=== PATIENT | female | born 1980 | race Caucasian/White ===

== ENCOUNTER → 2023-09-02 | Outpatient (CLI) | payer BC, SELFPAY ==
--- NOTE | 2023-09-02 12:11 | US_ITS ---
ACR Level 3 findings have been noted. An addendum which confirms receipt of the report will follow. INDICATION: LOOSE STOOLS EXAMINATION: US Abdomen RUQ (limited) TECHNIQUE: Barrios-scale and color Doppler imaging was performed of the right upper abdominal quadrant. COMPARISON: None. Findings: The liver is homogenous and normal in echogenicity and echotexture. There is no evidence of contour nodularity. There are multiple simple liver cysts. There is a 7 mm hyperechoic lesion in the right hepatic lobe.. The main portal vein is normal in size and patent demonstrating hepatopetal flow. The gallbladder is remarkable for sludge, however is without evidence of stones, wall thickening or pericholecystic fluid. Sonographic [place]''s tenderness is not appreciated. There is no evidence of intrahepatic biliary ductal dilatation. The CBD is nondilated measuring 4 mm at the level of the jim hepatis. The visualized portions of the pancreas are unremarkable without evidence of focal or diffuse enlargement. Specifically, the tail is obscured by overlying bowel gas. Right kidney measures 11.6 cm in length. It is normal in echogenicity. No focal renal lesion is identified. There is no evidence of hydronephrosis. US/Gallbladder IMPRESSION: 7 mm hyperechoic lesion in the right hepatic lobe is indeterminate. Recommend nonemergent follow-up multiphase CT or MR abdomen with and without contrast liver mass protocol for further evaluation. Otherwise, normal right upper quadrant ultrasound. Electronically Signed: Palmer Bowen MD at 17:30 EDT ,
== END | disposition home or self-care (01) ==
LOC: US 12:10
PROVIDERS: PCP Family Medicine; Referring Provider Family Medicine; Visit Provider Family Medicine
DX: R19.5 Other fecal abnormalities (principal)
CPT/HCPCS: 76705

== ENCOUNTER → 2023-10-01 | Outpatient (CLI) | payer BC, SELFPAY ==
--- NOTE | 2023-10-01 13:02 | CT_ITS ---
STUDY: CT ABDOMEN WITH AND WITHOUT CONTRAST REASON FOR EXAM: Female, 42 years old. LIVER LESION RADIATION DOSAGE (If Supplied By Facility): CTDIvol = ( 7.52 ) mGy, DLP = ( 675.20 ) mGycm TECHNIQUE: Transaxial images were obtained pre and post I.V. administration of 100 CC ISOVUE 300, and oral contrast. Sagittal and coronal images were reconstructed. Individualized dose optimization techniques were used for this CT. COMPARISON: Comparison is made with prior sonogram of the right upper quadrant dated September 02, 2023. FINDINGS: The visualized lung bases are unremarkable. The visualized portions of the heart are within normal limits. 7 mm hypodensity in the central right hepatic lobe. This represents a small cyst. A similar appearing cystic structure is seen in the posterior aspect of the left lobe of the liver measuring 7.9 mm. The gallbladder is contracted. Normal spleen. Normal pancreas. Normal bilateral adrenal glands. Normal right kidney. Normal left kidney. Normal visualized stomach. Normal small intestine. Normal colon. The appendix is visualized and appears normal. Normal abdominal aorta. Normal inferior vena cava. Normal retroperitoneum. Normal abdominal wall. Normal osseous structures. CT/Abdomen W/WO IV Contrast IMPRESSION: Small cysts in the liver as described. Electronically Signed: Brent Smith MD at 15:35 EST ,
== END | disposition home or self-care (01) ==
LOC: CT 13:01
PROVIDERS: PCP Family Medicine; Referring Provider Family Medicine; Visit Provider Family Medicine
DX: K76.9 Liver disease, unspecified (principal)
CPT/HCPCS: 74170; Q9967

== ENCOUNTER → 2025-03-02 | Outpatient (CLI) | payer OTHER, SELFPAY ==
--- NOTE | 2025-03-02 10:46 | BI_ITS ---
EXAM: SCRN MAMM (CAD)W/IDALIA BILAT 03/02/2025 CLINICAL HISTORY: F, Age 44 y/o , SCREENING TECHNIQUE: Bilateral screening digital breast tomosynthesis with 2D and 3D images. Computer aided detection. COMPARISON: Prior exam(s) dated 12/02/2023, 11/13/2022, 11/05/2022. FINDINGS: TISSUE DENSITY: The breast tissue is extremely dense which lowers the sensitivity of mammography. The mammogram demonstrates that the patient has dense breasts. Supplemental screening with whole breast ultrasound or MRI may be considered for further evaluation. Bilateral Breast Mammographic Findings: No significant masses, calcifications or other abnormalities are identified. BI/SCRN MAMM (CAD)W/IDALIA BILAT IMPRESSION: Right Breast: BIRADS 1 NEGATIVE. Left Breast: BIRADS 1 NEGATIVE. OVERALL FINAL ASSESSMENT: BIRADS 1 NEGATIVE. RECOMMENDATION: Routine annual follow-up in 1 Year A letter with findings and recommendations will be mailed to the patient. Reading Location: [id number]
== END | disposition home or self-care (01) ==
LOC: OPBI 10:45
PROVIDERS: PCP Family Medicine; Referring Provider Family Medicine; Visit Provider Family Medicine
DX: Z12.31 Encounter for screening mammogram for malignant neoplasm of breast (principal)
CPT/HCPCS: 77063; 77067

== ENCOUNTER 2025-10-31 11:21 | Emergency (ER) | payer OTHER, SELFPAY ==
[2025-10-31 11:23] VITALS: BP 123/82; PULSE 75; RESP 16; TEMP 36.6; O2SAT 100; BMI 23.3
--- NOTE | 2025-10-31 11:56 | EDS_ITS ---
HPI History of Present Illness Chief Complaint: Headache [facility] Medical History (Updated 10/31/25 @ 11:35 by Scarlet Arteaga) Sinus headache Allergy/AdvReac Type Severity Reaction Status Date / Time gluten Allergy Abd Verified 10/31/25 11:28 cramps/diarrhea milk (dairy) Allergy Vomiting Verified 10/31/25 11:28 Social History Smoking Status: Never smoker EXAM Physical Exam Const Vital Signs: 10/31/25 11:23 Temperature 97.9 F Temperature Source Oral Pulse Rate 75 Respiratory Rate 16 Blood Pressure 123/82 H Blood Pressure Mean 95 Pulse Ox 100 Oxygen Delivery Method Room Air Discharge Plan Triage Chief Complaint: Headache ED Provider: Irvin Lucas Dx/Rx/DC Orders Primary Care Provider: Nellie Miller Referrals: Nellie Miller DO [Primary Care Provider, Medical] Print Language: Andorran
--- NOTE | 2025-10-31 11:56 | EX.ED.VIS.HA ---
HPI History of Present Illness Chief Complaint: Headache Informant: patient Onset/Context/Timing Onset: Days (Gradual onset around or Thursday.) Context: Gradual Timing: Continuous Quality -Headache: Positive for Similar Prior Headaches and Sharp Current Severity: Mild Maximum Severity: Moderate Associated Symptoms/Injury Associated Symptoms: Positive for Sinus Pressure; Negative for Fever, Nausea, Vomiting, Sore Throat, Numbness, Tingling, Preceding Aura, Visual Changes, Photophobia or Visual Loss Injury - JON: Negative for Direct Trauma Narrative Narrative: 44-year-old female no CeeNU past medical history prior workup for lupus which she told her they do not believe she has it. No family history of intracranial bleeds or aneurysms. States for 5 days starting either last or last Thursday she has had pressure behind her eyes. Sinus congestion but no significant nasal discharge. And headache. Said the other night she noticed a prominent vein on her right forehead that has since resolved. She denies any head trauma she is on no blood thinners. She denies any weakness or numbness. Prior similar symptoms: Yes Recent Illness/Hospitalization: No PFSH PFSH Medical History Sinus headache Allergy/AdvReac Type Severity Reaction Status Date / Time gluten Allergy Abd Verified 10/31/25 11:28 cramps/diarrhea milk (dairy) Allergy Vomiting Verified 10/31/25 11:28 Social History Smoking Status: Never smoker ROS ROS ED ROS Narrative Headache. Nasal congestion. Constitutional Constitutional ED: Denies chills or fever(s) Eyes Eyes: Denies diplopia ENT ENT ED: Denies ear pain Cardiovascular Cardiovascular: Denies chest pain Respiratory/Chest Respiratory/Chest: Denies cough or dyspnea Gastrointestinal Gastrointestinal: Denies abdominal pain Genitourinary Genitourinary ED: Denies dysuria Musculoskeletal Musculoskeletal: Denies arthralgias Integumentary Denies abscess or Abrasions Neurologic Neurologic: Reports headache(s); Denies paresthesias or weakness Psychiatric Psychiatric: Denies anxiety or depression Endocrine Endocrinology: Denies polydipsia Hematologic/Lymphatic Hematologic/Lymphatic: Denies easy bleeding, easy bruising or lymphadenopathy Allergic/Immunologic Allergic/Immunologic ED: Denies mouth swelling, tongue swelling or urticaria EXAM Physical Exam Narrative Exam Narrative: Well-appearing 44-year-old female. Vital signs stable afebrile. H EENT exam pupils round react light. Moist mucous membranes. Neck nontender JVD. No lymphadenopathy. No meningismus. Her right forehead does have a mildly prominent vein but that is chronic according to the patient. It is nontender. There is no redness. She has no frontal or maxillary sinus tenderness. She has full range of motion of her neck. Full flexion extension. Lungs clear to auscultation bilaterally. Heart regular rhythm no murmur. Chest wall ribs nontender. Abdomen soft nontender. Moving all 4 extremities. Normal therapy teacher strength. Normal dorsi plantarflexion. Back nontender. Neurologic exam she is awake alert. Answering questions following commands. NIH is 0. Const Vital Signs: 10/31/25 11:23 Temperature 97.9 F Temperature Source Oral Pulse Rate 75 Respiratory Rate 16 Blood Pressure 123/82 H Blood Pressure Mean 95 Pulse Ox 100 Oxygen Delivery Method Room Air MDM MDM MDM Narrative Medical decision making narrative: 44-year-old female with acute on chronic headache. Exam is benign headache is improving. She does not need her wining for pain at this time. CAT scan will be obtained. I do not think it is meningitis she has had no trauma think it is extremely unlikely to be an intercranial bleed or aneurysm there is no family history of that. Repeat exam around 1235 patient doing well. Exam unchanged. Her lab work CAT scan results. She is comfortably discharged home. She is been referred to a home health outreach coordinator in the past for further all workup. She has not seen one as of yet. History & Record Review Discussion w/independent historian: Patient Additional record(s) reviewed:: Prior outpatient record and Prior labs Radiography Diagnostic Testing: Clinical Impression(s) from Imaging Studies Brain CT 10/31/25 12:02 IMPRESSION: No acute intracranial abnormalities. Reading Location: [facility] CT brain read by the radiologist no acute abnormality. No sinusitis. No bleed. No mass Discharge Plan Triage Chief Complaint: Headache ED Provider: Irvin Lucas Dx/Rx/DC Orders Clinical Impression: Headache Instructions: ED Headache Unspecified Primary Care Provider: Nellie Miller Referrals: Nellie Miller DO [Primary Care Provider, Medical] - 3-5 Days Activity Restrictions/Additional Instructions: A CAT scan your brain and your exam are unremarkable. Long-term I would follow-up with the home health outreach coordinator for further evaluation for possible vasculitis or other possibilities but at this time I do not think it is vasculitis at least not currently. Print Language: Wolof Disposition Disposition: Home, Self Care
--- NOTE | 2025-10-31 12:02 | CT_ITS ---
PROCEDURE: BRAIN/HEAD WITHOUT CONTRAST 10/31/2025 REASON FOR EXAM: HEADACHE TECHNIQUE: Procedure Code: CTBR Modality: CT Procedure: BRAIN/HEAD WITHOUT CONTRAST Coronal and Sagittal reconstruction series were provided. One or more dose reduction techniques were used (e.g., Automated exposure control, adjustment of the mA and/or kV according to patient size, use of iterative reconstruction technique. RADIATION DOSE SUMMARY: CTDlvol: 44.99 mGy DLP: 812.98 mGycm COMPARISON: None. FINDINGS: Brain: Normal CSF Spaces: Normal Sinuses/Mastoids: Clear at visualized levels Bones: No acute bony abnormalities. CT/Brain/Head without Contrast IMPRESSION: No acute intracranial abnormalities. Reading Location: [id number]
[2025-10-31 12:43] VITALS: BP 118/62; PULSE 75; RESP 16; TEMP 36.6; O2SAT 100
== END 2025-10-31 12:46 | disposition home or self-care (01) ==
PROVIDERS: Emergency Provider Emergency Medicine; PCP Family Medicine; Visit Provider Emergency Medicine
DX: R51.9 Headache, unspecified (principal)
CPT/HCPCS: 70450; 99283

== ENCOUNTER → 2025-11-13 | Outpatient (CLI) | payer OTHER, SELFPAY ==
[2025-11-13 09:21] LABS: Hematocrit 35.5 % (37-47); Hemoglobin 11.9 g/dL (12.0-15.0); Immature Granulocytes Count 0.010 X10^3/uL (0.0-0.0); Mean Corp Hgb Conc 33.5 g/dL (32-36); Mean Corpuscular Volume 93.9 fL (81-99); Mean Platelet Vol. 8.8 fl (6.2-12.0); NRBC Flagged by Analyzer 0 % (0-5); Platelet Count 248 K/mm3 (150-450); RBC Distribution Width CV 11.9 % (11.6-14.6); RBC Distribution Width SD 40.9 fl (35.1-43.9); Red Blood Count 3.78 M/mm3 (4.2-5.4); White Blood Count 5.3 K/mm3 (4.4-11.0)
[2025-11-13 09:59] LABS: Cholesterol 176 mg/dL (<=200); Follicle Stimulating Hormone 3.3 mIU/mL; Low Density Lipoprotein Calc. 98 mg/dL; Triglycerides 50 mg/dL; Very Low Density Lipoprotein 10 mg/dL (5-40); cholesterol:hdl ratio screen 2.60
[2025-11-13 10:00] LABS: Anion Gap 10 (5-15); BUN 12 mg/dL (4-19); BUN/Creat Ratio 13.1 RATIO (10-20); Calcium,Total 9.6 mg/dL (7.6-11.0); Carbon Dioxide 24.6 mmol/L (21.0-32.0); Chloride 104 mmol/L (98-108); Glucose 88 mg/dL (70-99); Potassium 3.9 mmol/L (3.3-5.1)
== END | disposition home or self-care (01) ==
LOC: PAVLAB 09:03
PROVIDERS: PCP Family Medicine; Referring Provider Family Medicine; Visit Provider Family Medicine
DX: Z00.00 Encounter for general adult medical examination without abnormal findings (principal); E78.1 Pure hyperglyceridemia
CPT/HCPCS: 36415; 80048; 80061; 82670; 83001; 85025